=== PATIENT | male | born 1985 | race Caucasian/White ===

== ENCOUNTER 2017-01-01 05:27 | Emergency (ER) | payer BC ==
[2017-01-01 05:40] VITALS: BP 147/107
--- NOTE | 2017-01-01 05:44 | EDM.PDOC ---
ED HPI GENERAL MEDICAL PROBLEM - General Chief Complaint: Lower Extremity Injury/Pain Stated Complaint: right leg pain Time Seen by Provider: 01/01/17 05:44 Source of Information: Reports: Patient History Limitations: Reports: No Limitations - History of Present Illness INITIAL COMMENTS - FREE TEXT/NARRATIVE: 31-year-old male presents to the ED due to acute onset of right knee pain. Pain is sharp and stabbing and radiates down the calf on the right side. No recent falls or known injuries.pain is felt mostly in the anterior aspect of the knee and perhaps slightly more medially within laterally. Pain started when he got up during the night to go to the bathroom. States severe sharp stabbing pain in his knee just above dropped him to the floor. He reports she's had at least 2 previous similar events perhaps not quite as severe. Has not noticed the need to be swelling. No recent trauma or trips or falls.states he can barely put any weight on the leg at this time. Is tippytoe walking or hopping. Onset: Today Onset Date: 01/01/17 Onset Time: 04:30 Duration: Minutes: Location: Reports: Lower Extremity, Right (right knee pain.) Quality: Reports: Ache, Stabbing Severity: Severe Improves with: Reports: None Worsens with: Reports: Movement (an attempt to weight-bear.) Context: Denies: Activity, Exercise, Lifting, Sick Contact, Trauma, Other Associated Symptoms: Reports: No Other Symptoms Treatments MONUMENT CARVER: Reports: Other (see below) Right Knee Pain Score (Numeric/FACES): 8 - Related Data Allergies Allergy/AdvReac Type Severity Reaction Status Date / Time coconut oil Allergy Hives Verified 01/01/17 05:37 diphenhydramine HCl Allergy Hives Verified 01/01/17 05:37 [From Benadryl] tree nut [Pecans] Allergy Hives Verified 01/01/17 05:37 venom-honey bee Allergy Respiratory Verified 01/01/17 05:37 [bee venom (honey bee)] Distress walnut Allergy Hives Verified 01/01/17 05:37 Home Meds: Home Meds Diclofenac Sodium [Voltaren] 50 mg PO BIDMEALS #20 tab.ec 01/01/17 [Rx] Gabapentin [Neurontin] 800 mg PO QID 01/01/17 [History] Pantoprazole Sodium [Protonix] 40 mg PO DAILY 01/01/17 [History] oxyCODONE HCl/Acetaminophen [Percocet 5-325 mg Tablet] 1 - 2 each PO Q4H PRN # 20 tablet 01/01/17 [Rx] Past Medical History Gastrointestinal History: Reports: GERD Musculoskeletal History: Reports: Fibromyalgia Other Musculoskeletal History: Fibromyalsia Neurological History: Reports: Concussion Other Neuro History: Coma Dermatologic History: Reports: Psoriasis - Past Surgical History Other HEENT Surgeries/Procedures: uvula, adenoids Social & Family History - Tobacco Use Smoking Status *Q: Current Every Day Smoker Years of Tobacco use: 15 Packs/Tins Daily: 1 Second Hand Smoke Exposure: Yes - Alcohol Use Days Per Week of Alcohol Use: 7 Number of Drinks Per Day: 2 Total Drinks Per Week: 14 - Recreational Drug Use Recreational Drug Use: No - Living Situation & Occupation Living situation: Reports: Single Occupation: Employed Review of Systems - Review of Systems Review Of Systems: See Below Eyes: Reports: No Symptoms Ears: Reports: No Symptoms Nose: Reports: No Symptoms Mouth/Throat: Reports: No Symptoms Respiratory: Reports: No Symptoms Cardiovascular: Reports: No Symptoms GI/Abdominal: Reports: No Symptoms Genitourinary: Reports: No Symptoms Musculoskeletal: Reports: Joint Pain (acute pain right knee) Skin: Reports: Other (chronic psoriasis.) Neurological: Reports: No Symptoms Psychiatric: Reports: No Symptoms ED EXAM, GENERAL - Physical Exam Exam: See Below Exam Limited By: No Limitations General Appearance: Alert, Moderate Distress Respiratory/Chest: No Respiratory Distress, Lungs Clear, Normal Breath Sounds, No Accessory Muscle Use Cardiovascular: Normal Peripheral Pulses, Regular Rate, Rhythm, No Edema, No Gallop, No Murmur Extremities: Other (He does have pain flexing past 30 and has some difficulty fully extending at the knee. Pain is along the anterior medial joint space and MCL ligament. Stressing the medial meniscus gave him slightly increased pain.) Neurological: Alert, Oriented, CN II-XII Intact, Normal Cognition, Normal Gait Psychiatric: Normal Affect, Normal Mood Skin Exam: Warm, Dry, Intact, Normal Color, No Rash Course - Vital Signs Last Recorded V/S: Last Vital Signs Temp 36.6 C 01/01/17 05:37 Pulse 91 01/01/17 05:37 Resp 20 01/01/17 05:37 BP 147/107 H 01/01/17 05:37 Pulse Ox 97 01/01/17 05:37 - Orders/Labs/Meds Meds: Medications Discontinued Medications Generic Name Dose Route Start Last Admin Trade Name [place] JOY Reason Stop Dose Admin Ibuprofen 800 mg 01/01/17 06:00 01/01/17 06:14 Motrin PO 01/01/17 06:01 800 mg ONETIME ONE Administration Oxycodone/Acetaminophen 2 tab 01/01/17 06:01 01/01/17 06:14 Percocet 325-5 Mg PO 01/01/17 06:02 2 tab ONETIME ONE Administration - Radiology Interpretation Free Text/Narrative:: 31-year-old male presents to the ED with acute onset of severe sharp stabbing pain in his right anterior medial knee. She states this occurred when he got out of bed to use the bathroom early this morning. Pain came on suddenly and just above dropped him to the floor. He reports he said 2 or 3 similar type attacks but never quite this severe. Nothing special over the weekend. On examination there is no true effusion. There is medial joint tenderness. Stressing the medial cartilage gave him only mild pain in the knee at this time. He has quite apprehensive power. Cruciate ligaments are intact. Stressing the MCL was perhaps slightly tender. I will have an x-ray of his knee done since he's been having recurrent problems for a lengthy period of time. May be able to identify loose bodies within the knee.we'll give him Motrin 800 mg by mouth and Percocet 5/3/25 milligrams tabs 2. His weight is estimated to be around 225 pounds. - Re-Assessments/Exams Free Text/Narrative Re-Assessment/Exam: 01/01/17 06:14 x-ray of the right knee has been completed.No abnormalities are detected.patient will be placed in a knee immobilizer. He will be nonweightbearing crutch walking until he is able to weight-bear with minimal pain. Ideally he needs to follow-up with orthopedic surgeon as I suspect clinically has a torn medial meniscus. He will be off work all of this week. Note given to that effect. Discharged home on Voltaren 50 mg twice a day for the next 10 days. Percocet tabs 5/325 one or 2 every 4-6 hours as needed for pain relief over the next 3 days. Departure - Departure Time of Disposition: 06:21 Disposition: Home, Self-Care 01 Condition: Fair Clinical Impression: Pain of right knee and lower leg - Discharge Information Prescriptions: Diclofenac Sodium [Voltaren] 50 mg PO BIDMEALS #20 tab.ec oxyCODONE HCl/Acetaminophen [Percocet 5-325 mg Tablet] 1 - 2 each PO Q4H PRN # 20 tablet PRN Reason: pain relief. Instructions: Knee Pain Referrals: Karlie Snyder MD [Primary Care Provider] - Forms: ED Department Discharge, ED Return to Work/School Form Additional Instructions: evaluation in the emergency room this morning in regards to acute onset of severe right knee pain when he got up to use the bathroom this morning. Pain sharp and stabbing just above dropped to to the floor. History suggests this is happened on a few occasions in the past. Examination of your knee does not reveal any blood within the knee compartment. The cruciate ligaments are intact. Pain is along the medial aspect of the knee and medial collateral ligament insertion site. Clinically I suspect you have a torn medial meniscus or cartilage within your knee. X-ray of the knee is completely normal.treatment is to be a knee immobilizer on during the day off at night. Nonweightbearing crutch walking for the next 4 or 5 days until he can weight-bear with minimal pain in her knee. It may take a little longer than for 5 days. Off work for a minimum of the next week. I would suggest follow-up with orthopedic surgeon as I suspect he will need a scope of your right knee to fix this problem please call Dr. Wolfe's office at [phone] to arrange an appointment. Office will be open this morning.suggest use of Voltaren 50 mg twice daily for the next 10 days to relieve pain and inflammation in the knee pain medicine Percocet 5/ 325mg ,such as you were given in the ED one or 2 tablets every 4-6 hours for pain not controlled by Voltaren alone.usually this severe pain will settle down over the next 3 days.
[2017-01-01] MEDS ORDERED: Ibuprofen 800 MG Tab PO ONE (06:00)
[2017-01-01] MEDS ORDERED: Acetaminophen/oxyCODONE 325-5 MG Tab PO ONE (06:01)
--- NOTE | 2017-01-01 10:23 | CR ---
Right knee: AP, lateral and sunrise patellar views of the right knee were obtained. Comparison: No prior knee exam. Medial and lateral joint spaces are maintained in height. Right patellofemoral joint appears within normal limits. No joint effusion is seen. No fracture or other abnormality is identified. Impression: 1. No abnormality is identified on three-view right knee exam. Diagnostic code #1
== END 2017-01-01 06:45 | disposition home or self-care (01) ==
LOC: JD.ED 05:27
DX: M25.561 Pain in right knee (principal); F17.210 Nicotine dependence, cigarettes, uncomplicated; Z91.018 Allergy to other foods; Z91.030 Bee allergy status; Z79.899 Other long term (current) drug therapy
CPT/HCPCS: 73562; 99283; A9270

== ENCOUNTER 2019-05-28 22:11 | Emergency (ER) | payer BC, OTHER ==
[2019-05-28 22:26] VITALS: BP 115/88; PULSE 116
[2019-05-28] MEDS ORDERED: Promethazine 25 MG/ML SDV IM ONE (22:41)
[2019-05-28] MEDS ORDERED: HYDROmorphone 1 MG/ML Syringe IM ONE (22:41)
--- NOTE | 2019-05-28 22:43 | EDM.PDOC ---
ED HPI GENERAL MEDICAL PROBLEM - General Chief Complaint: Back Pain or Injury Stated Complaint: PAIN IN SHOULDER BLADE AREA Time Seen by Provider: 05/28/19 22:42 Source of Information: Reports: Patient History Limitations: Reports: No Limitations - History of Present Illness INITIAL COMMENTS - FREE TEXT/NARRATIVE: 34-year-old male presents to the ED in a mildly intoxicated state complaining of severe pain right upper anterior neck shoulder blade area. Patient has severe degenerative disc disease in his cervical spine and has had 4 separate surgeries on his cervical spine. Initial surgery was performed by in [place] and the last 3 have been performed by at [facility] in [place]. The last surgery was complicated by staph aureus infection had to be opened and drained and washed out and clean. He was on a PICC line for about a month with IV antibiotics but it had to be taken out because of development of an axillary vein thrombosis. His surgery was in January 2019. He has pain in his right upper neck and back is started only 2 days ago and is constant and unrelenting. He states he drank 3 shots of alcohol tonight in the hopes of dampening the pain and waiting till tomorrow morning but states the pain is unbearable. States it is radiating slightly into his right shoulder particularly posterior aspect of the triceps but not down below the elbow. Is also got a mild cough and is a heavy cigarette smoker. Pain seems to radiate at times through his right anterior chest to his upper neck and back. Onset: Sudden Onset Date: 05/26/19 Duration: Day(s):, Getting Worse ( States pain getting worse over the last 2 days) Location: Reports: Neck (Base of the right neck actually thoracic to 3 level on the right side.), Upper Extremity, Right (Radiates into his right upper triceps area.) Quality: Reports: Ache ( nerve root entrapment and radiculopathy.), Burning, Sharp, Stabbing Severity: Severe (9 out of 10) Improves with: Reports: None Worsens with: Reports: Movement (Can make the pain worse by certain movements of his neck particular to the left side and full flexion as well as extension to the left side. This suggests) Context: Denies: Activity, Exercise, Lifting, Sick Contact, Trauma, Other Associated Symptoms: Reports: Cough, cough w sputum, Malaise Treatments ACTIVITY LEADER: Reports: NSAIDS, Other (see below) Other Treatments ACTIVITY LEADER: advil Right Shoulder Pain Score (Numeric/FACES): 10 - Related Data Allergies Allergy/AdvReac Type Severity Reaction Status Date / Time coconut oil Allergy Hives Verified 05/28/19 22:26 diphenhydramine HCl Allergy Hives Verified 05/28/19 22:26 [From Benadryl] Penicillins Allergy Anaphylactic Verified 05/28/19 22:26 Shock tree nut [Pecans] Allergy Hives Verified 05/28/19 22:26 venlafaxine [From Effexor] Allergy Airway Verified 05/28/19 22:26 Tightness venom-honey bee Allergy Respiratory Verified 05/28/19 22:26 [bee venom (honey bee)] Distress walnut Allergy Hives Verified 05/28/19 22:26 Home Meds: Home Meds Gabapentin [Neurontin] 800 mg PO QID 01/01/17 [History] Pantoprazole Sodium [Protonix] 40 mg PO DAILY 01/01/17 [History] oxyCODONE 3 tab PO Q4HR PRN 02/19/18 [History] Cyclobenzaprine HCl 10 mg PO BEDTIME PRN 02/20/18 [History] Etanercept [Enbrel] 50 mg SQ WEEKLY 02/20/18 [History] metFORMIN [Glucophage XR] 500 mg PO BIDMEALS 02/20/18 [History] traZODone HCl [Trazodone HCl] 50 mg PO BEDTIME 02/20/18 [History] SitaGLIPtin [Januvia] 100 mg PO DAILY 02/10/19 [History] oxyCODONE HCl/Acetaminophen [Percocet 10-325 mg Tablet] 1 each PO Q4H #24 tablet 05/28/19 [Rx] predniSONE [Prednisone] 20 mg PO ASDIRECTED #18 tablet 05/28/19 [Rx] Apixaban [Eliquis] 5 mg PO BID 05/29/19 [History] Aspirin [Ecotrin EC] 1 tab PO DAILY 05/29/19 [History] Calcium Carbonate [Calcium] 500 mg PO DAILY 05/29/19 [History] Colchicine [Colcrys] 0.6 mg PO DAILY 05/29/19 [History] DULoxetine [Cymbalta] 30 mg PO DAILY 05/29/19 [History] Insulin Glargine,Hum.Rec.Anlog [Basaglar Kwikpen U-100] 20 unit SUBCUT BEDTIME 05/29/19 [History] atorvaSTATin [Lipitor] 20 mg PO BEDTIME 05/29/19 [History] Past Medical History Cardiovascular History: Reports: Hypertension, Other (See Below) Other Cardiovascular History: tachycardia Respiratory History: Reports: Sleep Apnea Gastrointestinal History: Reports: GERD Genitourinary History: Reports: Renal Calculus Musculoskeletal History: Reports: Fibromyalgia, RA Other Musculoskeletal History: Fibromyalsia Neurological History: Reports: Concussion Other Neuro History: Coma Endocrine/Metabolic History: Reports: Diabetes, Type II (Controlled with insulin and oral anti-diabetic agents) Dermatologic History: Reports: Psoriasis - Infectious Disease History Infectious Disease History: Reports: Other (See Below) Other Infectious Disease History: staph and neck - Past Surgical History HEENT Surgical History: Reports: Adenoidectomy, Tonsillectomy Other HEENT Surgeries/Procedures: uvula, adenoids, lymphnodes removed Neurological Surgical History: Reports: C-Spine (Separate surgeries on his cervical spine. The last one was in January 2019 and was complicated by staph aureus infection requiring the wound to be opened and drained and washed out and PICC line antibiotics for 4 weeks. The PICC line had to be abandoned because he developed a axillary vein thrombosis.), Other (See Below) Other Neurological Surgeries/Procedures: 4 cervical spine sx Musculoskeletal Surgical History: Reports: Hip Replacement Social & Family History - Family History Family Medical History: Noncontributory - Tobacco Use Smoking Status *Q: Current Every Day Smoker Tobacco Use Within Last Twelve Months: Cigarettes (Usually 1-1/2 packs/day) Years of Tobacco use: 20 Packs/Tins Daily: 1.5 - Caffeine Use Caffeine Use: Reports: None Other Caffeine Use: 1 cup coffe/day - Alcohol Use Days Per Week of Alcohol Use: 5 Number of Drinks Per Day: 4 Total Drinks Per Week: 20 - Recreational Drug Use Recreational Drug Use: No - Living Situation & Occupation Living situation: Reports: Single Occupation: Employed ED ROS GENERAL - Review of Systems Review Of Systems: See Below Constitutional: Reports: Malaise, Weakness, Fatigue, Decreased Appetite. Denies : Fever, Chills HEENT: Reports: No Symptoms Respiratory: Reports: Wheezing, Cough, Sputum Cardiovascular: Reports: Chest Pain (Pleuritic type pain right upper anterior chest with coughing.), Dyspnea on Exertion. Denies: Blood Pressure Problem, Claudication, Edema, Lightheadedness, Orthopnea Endocrine: Reports: Fatigue (Sometimes) GI/Abdominal: Reports: No Symptoms : Reports: Frequency Musculoskeletal: Reports: Neck Pain (Chronically), Back Pain (Really having a lot of right upper back pain adjacent to T2-T3 vertebra. It is rating into his shoulder blade and posterior aspect of his right upper arm in the triceps distribution i.e. pickle 8 and 7 and 6 distribution) Skin: Reports: No Symptoms Neurological: Reports: Other (Radicular pain into his right upper posterior arm) Psychiatric: Reports: No Symptoms Hematologic/Lymphatic: Reports: No Symptoms Immunologic: Reports: No Symptoms ED EXAM, UPPER BACK/NECK PAIN - Physical Exam Exam: See Below Exam Limited By: No Limitations (He is mildly intoxicated with alcohol.) General Appearance: Alert, WD/WN, Moderate Distress (Is to be in a good deal of pain.) Eye Exam: Bilateral Eye: Normal Inspection Neck Exam: Muscle Spasm (He does have paraspinal muscle spasm starting at thoracic [address] up to the thoracic 1 on the right side. There is also point tenderness over rib heads thoracic 8 bilaterally.), Paraspinous Muscle Tender (Right side thoracic spine), Stiff Neck, Other (Is limited range of motion of his neck and he can make the pain worse by rotating his head to the left side as well as full flexion he can make the pain worse.). No: Full Range of Motion, Normal Alignment, Spinous Processes Tender Nexus Criteria: Posterior, Midline Cervical Tenderness. No: Evidence of Intoxication, Altered Level of Consciousness, Focal Neurological Deficit, Painful Distraction Injuries Cardiovascular/Respiratory: Regular Rate, Rhythm, No M/R/G, Normal Peripheral Pulses, Tachycardia (Sting heart rate was 116/min.) Extremities: Other (There was no muscle wasting in the distribution of the triceps and biceps or brachialis on the right side he has good radial ulnar pulses on the right side. There is no obvious swelling to suggest recurrence of axillary vein thrombosis. He has normal motor power and tone in his triceps and biceps upper extremity on the side.) Neurologic: No Motor/Sensory Deficits, Alert, Oriented x 3 DTR: 1+: Bicep (R) (Brachioradialis was 1+ on the right side 2+ on the left) Psychiatric: Other Skin Exam: Normal Color, Warm/Dry (Good deal of pain.) Course - Vital Signs Last Recorded V/S: Last Vital Signs Temp 36.1 C 05/28/19 22:21 Pulse 116 H 05/28/19 22:21 Resp 22 H 05/28/19 22:21 BP 115/88 05/28/19 22:21 Pulse Ox 94 L 05/28/19 22:21 - Orders/Labs/Meds Orders: Active Orders 24 hr Category Date Time Status Chest 2V [CR] Stat Exams 05/28/19 22:42 Taken Meds: Medications Discontinued Medications Generic Name Dose Route Start Last Admin Trade Name Freq PRN Reason Stop Dose Admin Hydromorphone HCl 1 mg 05/28/19 22:41 05/28/19 22:55 Dilaudid IM 05/28/19 22:42 1 mg ONETIME ONE Administration Oxycodone/Acetaminophen 2 tab 05/28/19 23:34 05/28/19 23:49 Percocet 325-5 Mg PO 05/28/19 23:35 2 tab ONETIME ONE Administration Prednisone 30 mg 05/28/19 23:42 05/28/19 23:50 Prednisone PO 05/28/19 23:43 30 mg ONETIME ONE Administration Promethazine HCl 25 mg 05/28/19 22:41 05/28/19 22:57 Phenergan IM 05/28/19 22:42 25 mg ONETIME ONE Administration - Radiology Interpretation Free Text/Narrative:: 34-year-old male presents to the ED with increasing pain in his right upper neck for the last 2 and half to 3 days. Pain is worse tonight than it was 3 days ago. History is complicated by the fact that he has had 4 separate surgeries on his cervical spine due to degenerative arthritis and nerve root impingements. He is fused at multiple levels. No recent falls or injuries. Last surgery was in January 2019 and was complicated by wound infection with staph aureus and had to be opened up and drained. He also required PICC line insertion right upper extremity and received and IV antibiotics for about a month. The PICC line had to be removed because of development of axillary vein thrombosis. Coughing and does have a Pleuritic component to his pain right upper anterior chest. Pain is well localized to the cervical 2 3 area or facet joints in his right upper neck. Has radicular pain into the posterior aspect of his triceps on the right side but not below the elbow with no muscle wasting in the distribution of the biceps or triceps. We can make the pain worse by rotating his head to the left with left lateral flexion and by full flexion of these chin on chest. This suggests that there is a radicular component to the pain likely coming from his neck i.e. C7-C8. - Re-Assessments/Exams Free Text/Narrative Re-Assessment/Exam: 05/28/19 23:21 2 view chest x-ray reveals clear lung erwin and normal cardiac silhouette. There is evidence of multiple areas of hardware within his upper cervical and lower cervical spine. Patient is going to require further work-up by way of MRI if his pain persists. In the meantime I will give him an injection of Dilaudid 1 mg with Phenergan 25 mg IM for acute pain relief. Prescription written for Percocet 95413 mg 1 or 2 every 4-6 hours necessary for pain relief. He will have to follow-up with his personal care physician or neurosurgeon for MRI if his pain persists. We will give him to 5/325 mg Percocet tablets through the ED tonight since the [employer] machine I cannot access due to recent changes in computer programming. 30 mg of prednisone in the ED and a prescription to start 20 mg twice daily for 6 days and then once in the morning for another 6 days starting tomorrow morning. Cannot take anti- inflammatories as he is currently on Coumadin. Departure - Departure Time of Disposition: 23:35 Disposition: Home, Self-Care 01 Condition: Fair Clinical Impression: Cervical radiculopathy at C6 - Discharge Information *PRESCRIPTION DRUG MONITORING PROGRAM REVIEWED*: Not Applicable *COPY OF PRESCRIPTION DRUG MONITORING REPORT IN PATIENT SAUL: Not Applicable Prescriptions: oxyCODONE HCl/Acetaminophen [Percocet 10-325 mg Tablet] 1 each PO Q4H #24 tablet predniSONE [Prednisone] 20 mg PO ASDIRECTED #18 tablet Instructions: Cervical Radiculopathy, [id number] Referrals: Deloris Woods PA-C [Primary Care Provider] - Forms: ED Department Discharge Additional Instructions: Evaluation in the emergency room today in regards to development of severe lancinating radicular pain in your right upper neck rating into the shoulder blade and posterior aspect of your right arm. Past history of 4 separate surgeries on her cervical spine due to severe degenerative arthritic change and degenerative disc disease with nerve root entrapment. There is that nerve root at cervical 6 and 7 is irritated on the right side causing current pain syndrome. Suggest a trial of medication to reduce the inflammation in the area and see if it will settle down. I would make a phone call to set up an appointment to see Dr. Guevara neurosurgeon and [place] as will probably take 10 days to get an appointment time if your pain is not markedly improved in 10 days time and imaging will be required likely with MRI. Suggest a trial of prednisone 20 mg twice daily with breakfast and supper for 6 days then once in the morning only for 6 days to reduce pain and inflammation. You cannot take anti-inflammatories as you are currently taking Coumadin due to recent blood clot in your right axillary vein. The medication is to be Percocet 10/325 mg tab ideally 1 tablet every 4-6 hours necessary for pain relief as needed. Sent home with two 5/325 mg Percocet tablets from the ED tonight that you can take after 4 PM if needed for further pain relief until he can chart picker prescription tomorrow Sepsis Event Note - Evaluation Sepsis Screening Result: No Definite Risk - Focused Exam Vital Signs: Vital Signs Temp Pulse Resp BP Pulse Ox 05/28/19 22:21 36.1 C 116 H 22 H 115/88 94 L Date Exam was Performed: 05/29/19 Time Exam was Performed: 03:20 - My Orders Last 24 Hours: My Active Orders 05/28/19 22:42 Chest 2V [CR] Stat - Assessment/Plan Last 24 Hours: My Active Orders 05/28/19 22:42 Chest 2V [CR] Stat
[2019-05-28] MEDS ORDERED: Acetaminophen/oxyCODONE 325-5 MG Tab PO ONE (23:34)
[2019-05-28] MEDS ORDERED: predniSONE 20 MG Tab PO ONE (23:42)
--- NOTE | 2019-05-29 07:21 | CR ---
Chest: Two views of the chest were obtained. Comparison: Prior chest x-ray of 02/19/18. Heart size and mediastinum are normal. Slight pleural thickening is noted along both lateral chest wilkinson. Previous cervical spine surgery is noted. Bony structures appear within normal limits for the patient's age. Impression: 1. Mild symmetric pleural thickening along the lateral chest wilkinson on both sides. This most likely relates to extrapleural fat. 2. Nothing acute is otherwise seen on two-view chest x-ray. Diagnostic code #2 This report was dictated in [place] Standard Time
== END 2019-05-28 23:53 | disposition home or self-care (01) ==
LOC: JD.ED 22:11
DX: M54.12 Radiculopathy, cervical region (principal); I10 Essential (primary) hypertension; M06.9 Rheumatoid arthritis, unspecified; E11.9 Type 2 diabetes mellitus without complications; F17.210 Nicotine dependence, cigarettes, uncomplicated; Z98.890 Other specified postprocedural states; Z79.82 Long term (current) use of aspirin; Z79.899 Other long term (current) drug therapy; Z91.018 Allergy to other foods; Z88.8 Allergy status to other drugs, medicaments and biological substances; Z79.84 Long term (current) use of oral hypoglycemic drugs; Z88.0 Allergy status to penicillin; Z91.030 Bee allergy status
CPT/HCPCS: 71046; 96372; 99283; A9270; J1170; J2550

== ENCOUNTER 2019-07-03 15:52 | Emergency (ER) | payer OTHER ==
[2019-07-03 16:01] VITALS: BP 143/109; PULSE 127
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
[2019-07-03 17:11] LABS: ACETAMINOPHEN 0 ug/mL (10-30)
[2019-07-03] MEDS ORDERED: Ketorolac 60 MG/2 ML SDV IM ONE (17:24)
[2019-07-03] MEDS ORDERED: Sodium Chloride 0.9% 1,000 ML IV SCH (18:00)
== END 2019-07-03 19:26 ==
LOC: JD.ED 15:52
DX: F32.9 Major depressive disorder, single episode, unspecified (principal); F10.120 Alcohol abuse with intoxication, uncomplicated; Y90.8 Blood alcohol level of 240 mg/100 ml or more; I10 Essential (primary) hypertension; E11.9 Type 2 diabetes mellitus without complications; M06.9 Rheumatoid arthritis, unspecified; F17.210 Nicotine dependence, cigarettes, uncomplicated; E66.9 Obesity, unspecified; Z68.34 Body mass index [BMI] 34.0-34.9, adult; K21.9 Gastro-esophageal reflux disease without esophagitis; Z91.018 Allergy to other foods; Z88.8 Allergy status to other drugs, medicaments and biological substances; Z88.0 Allergy status to penicillin; Z91.030 Bee allergy status; Z79.4 Long term (current) use of insulin; Z79.82 Long term (current) use of aspirin; Z79.01 Long term (current) use of anticoagulants; Z79.899 Other long term (current) drug therapy
CPT/HCPCS: 36415; 80053; 80306; 80307; 84443; 85007; 85027; 93005; 96360; 96372; 99285; J1885; J7030; 93010

== ENCOUNTER 2025-01-07 00:33 | Day surgery (SDC) | payer MEDICARE, OTHER ==
[2025-01-07 02:55] LABS: BASOPHILS ABSOLUTE AUTO 0.1 K/mm3 (0.0-0.2); BASOPHILS PERCENT AUTO 0.2 % (0.0-1.0); EOSINOPHILS ABSOLUTE AUTO 0.1 K/mm3 (0.0-0.4); EOSINOPHILS PERCENT AUTO 0.4 % (0.0-6.0); IMMATURE GRAN ABSOLUTE AUTO 0.13 K/mm3 (0.00-0.05); IMMATURE GRAN PERCENT AUTO 0.5 % (0.0-0.4); LYMPHOCYTES ABSOLUTE AUTO 1.9 K/mm3 (1.0-4.8); LYMPHOCYTES PERCENT AUTO 7.4 % (24.0-44.0); MEAN PLATELET VOLUME 9.9 fl (9.4-12.4); MONOCYTES ABSOLUTE AUTO 1.6 K/mm3 (0.0-0.8); MONOCYTES PERCENT AUTO 6.2 % (0.0-8.0); NEUTROPHILS ABSOLUTE AUTO 22.3 K/mm3 (1.8-7.7); NEUTROPHILS PERCENT AUTO 85.3 % (41.0-71.0); NRBC ABSOLUTE 0.00 (0.00-0.02); NRBC PERCENT 0.0 % (0.0-0.2); PLATELET COUNT,PLT 281 K/mm3 (150-400); RED BLOOD CELL COUNT 4.58 M/mm3 (4.52-5.90); WHITE BLOOD CELL COUNT,WBC 26.13 K/mm3 (3.9-11.3)
[2025-01-07] MEDS: Sodium Chloride 0.9% 10 ML Syringe FLUSH PRN (02:58)
[2025-01-07 03:16] LABS: A/G RATIO 0.6 (1-2); ALANINE AMINOTRANSFERASE,ALT 34.0 U/L (16-63); ASPARTATE AMNIOTRANSFERASE,AST 23.0 U/L (15-37); BILIRUBIN TOTAL 0.4 mg/dL (0.2-1.0); BLOOD UREA NITROGEN,BUN 8.0 mg/dL (7-18); CARBON DIOXIDE,CO2 29.0 mEq/L (21-32); CHLORIDE,CL 99.0 mEq/L (98-107); CREATININE 1.0 mg/dL (0.7-1.3); EST CRCL DRUG DOSING (CG) 94.05 mL/min; ESTIMATED GFR 97.0 mL/min (>60); GLUCOSE RANDOM 185.0 mg/dL (70-99); POTASSIUM,K 3.9 mEq/L (3.5-5.1); PROTEIN TOTAL,TP 8.0 g/dl (6.4-8.2); SODIUM,NA 135.0 mEq/L (136-145)
[2025-01-07] MEDS: Iopamidol 612 MG/ML 100 ML Bottle IVPUSH ONE (03:36)
[2025-01-07 03:57] LABS: APPEARANCE,URINE CLEAR (Clear); GLUCOSE,URINE NEGATIVE (Negative); OCCULT BLOOD,URINE NEGATIVE (Negative)
[2025-01-07] MEDS: metroNIDAZOLE/Normal Saline 500 MG in Premix Bag 1 BAG IV ONE (05:18)
[2025-01-07 05:39] LABS: LACTIC ACID 0.7 mmol/L (0.4-2.0)
[2025-01-07] MEDS: Levofloxacin/Dextrose 5%-Water 750 MG in Premix Bag 1 BAG IV ONE (06:28)
[2025-01-07] MEDS ORDERED: Propofol 200 MG/20 ML SDV ONE (09:26)
[2025-01-07] MEDS ORDERED: Ondansetron 4 MG/2 ML SDV ONE (09:26)
[2025-01-07] MEDS ORDERED: Dexamethasone 4 MG/ML 5 ML MDV ONE (09:26)
[2025-01-07] MEDS ORDERED: fentaNYL 100 MCG/2 ML SDV ONE ×2 (09:40→10:13)
[2025-01-07] MEDS ORDERED: Lactated Ringers 1,000 ML ONE (10:22)
[2025-01-07] MEDS ORDERED: fentaNYL 100 MCG/2 ML SDV IVPUSH PRN (11:08)
[2025-01-07] MEDS: EPINEPHrine 1 MG/ML SDV ONE (11:13)
[2025-01-07 13:37] VITALS: BP 114/72; PULSE 75
== END 2025-01-07 13:15 | disposition home or self-care (01) ==
LOC: JD.ED 00:33 → JD.SDS 08:50
PROVIDERS: ATTEND Surgery
DX: K61.1 Rectal abscess (principal); I10 Essential (primary) hypertension; F32.A Depression, unspecified; E11.9 Type 2 diabetes mellitus without complications; E66.9 Obesity, unspecified; K21.9 Gastro-esophageal reflux disease without esophagitis; F17.210 Nicotine dependence, cigarettes, uncomplicated; Z88.0 Allergy status to penicillin; Z91.030 Bee allergy status; Z88.5 Allergy status to narcotic agent; Z91.018 Allergy to other foods; Z79.899 Other long term (current) drug therapy
CPT/HCPCS: 36415; 46040; 72193; 80053; 81003; 83605; 83690; 85025; 87040; 87070; 87205; A9270; J0169; J0665; J1100; J1171; J1836; J1956; J2270; J2405; J2704; J3010; J7030; J7120; Q9967; 96361; 96365; 96366; 96367; 96375; 96376; 99284-25; 99285